=== PATIENT | female | born 1950 | race Caucasian/White ===

== ENCOUNTER → 2023-12-17 08:38 | Outpatient (REF) | payer OTHER, SELFPAY | LOC: HWRAD 08:38 | PROVIDERS: ATTENDING PHYSICIAN Internal Medicine Critical Care Medicine; FAMILY PHYSICIAN Internal Medicine | DX: R06.02 Shortness of breath (principal); R00.0 Tachycardia, unspecified | CPT/HCPCS: 71275; Q9967 ==

== ENCOUNTER → 2024-01-16 15:50 | Outpatient (REF) | payer OTHER, SELFPAY | LOC: HWRCS 15:50 | PROVIDERS: ATTENDING PHYSICIAN Internal Medicine Cardiovascular Disease; FAMILY PHYSICIAN Internal Medicine | DX: R06.02 Shortness of breath (principal); R00.0 Tachycardia, unspecified; Z87.891 Personal history of nicotine dependence; R07.89 Other chest pain | CPT/HCPCS: 93306 ==